=== PATIENT | male | born 1990 | race Caucasian/White ===

== ENCOUNTER 2023-07-22 17:38 | Emergency (ER) | payer OTHER ==
[~2023-07-22] VITALS: Ht 175.3 cm; Wt 97.1 kg
[2023-07-22 18:05] VITALS: BP_SYST 110; PULSE 75; RESP 18; TEMP 97.8; O2SAT 96
[2023-07-22 20:25] VITALS: BP_SYST 122; PULSE 80; RESP 18; TEMP 98.3; O2SAT 99
== END 2023-07-22 20:15 | disposition home or self-care (01) ==
LOC: SED 17:38
DX: S93.492A Sprain of other ligament of left ankle, initial encounter (principal); Z88.5 Allergy status to narcotic agent; Z79.899 Other long term (current) drug therapy; W27.1XXA Contact with garden tool, initial encounter; Y93.89 Activity, other specified; Y92.89 Other specified places as the place of occurrence of the external cause; Y99.8 Other external cause status
CPT/HCPCS: 99283